=== PATIENT | male | born 1975 | race African-American/Black ===

== ENCOUNTER 2016-08-12 20:07 | Inpatient (IN) | payer SELFPAY ==
--- NOTE | ~2016-08-12 | CN ---
Consultation Report [facility] [address] [place]. [address] NAME: YOGESH DE LA TORRE : 75 STATUS : ADM IN [facility]#: [id number] AGE: 41 ADM/REG DATE : 08/12/16 MR#: [id number] REPORT SERV DATE: 08/13/16 DICTATED BY: KARLIE DE LA ROSA DATE: 08/13/16 REPORT STATUS : Draft TRANSCRIBED BY: MODL DATE: 08/13/16 PULMONARY CONSULTATION DATE OF CONSULTATION: REASON FOR CONSULTATION: Necrotizing pneumonia on the right side. CHIEF COMPLAINT: Not feeling well for one month. HISTORY OF PRESENT ILLNESS: Mr. De La Torre is a 41-year-old gentleman with a past medical history noted below, who presents with one month of symptoms, he has been having right-sided chest pain, worsening shortness of breath, fevers, and chills along with night sweats. He has had some sputum, bloody-tinged secretions, there. He has been on different antibiotics, but does not feel like he is getting better. He presented to the outside hospital, they conducted what sounds to be a thoracentesis and have conducted two CT scans which shows progression of this pneumonia and felt that he needed a more aggressive approach with CT surgery. The patient has been admitted. The patient was on Rocephin and vancomycin, transitioned to Levaquin and vancomycin at the outside hospital. The patient still has a white count of 25,000. Fortunately, the patient is currently not hypoxic. PAST MEDICAL HISTORY: The patient states that he is healthy other than hypertension and does use tobacco. HOME MEDICATIONS: Lisinopril 30 mg once daily. ALLERGIES: NO KNOWN DRUG ALLERGIES. SOCIAL HISTORY: The patient does smoke around one pack per day for many years. No alcohol or illicit drug use. Aunt is at the bedside. FAMILY HISTORY: The patient denies having any family history of infections. REVIEW OF SYSTEMS: All pertinent review of systems reviewed and is otherwise negative. PHYSICAL EXAMINATION: VITAL SIGNS: Temperature maximum 99, heart rate in high 90s, respiratory rate 18 to 22, and oxygen saturation 93% on 2 L nasal cannula. When I saw the patient in the room, he was on room air. Blood pressure currently in the 130s to 140s systolic. GENERAL: The patient is alert and oriented, no acute distress. NECK: No JVD. Neck is supple. PULMONARY: Decreased breath sounds on the right side, left side is clear to auscultation bilaterally. CARDIAC: Regular rate, no murmurs. Consultation Report [address] [address] NAME: YOGESH DE LA TORRE : 75 STATUS : ADM IN PAT#: [id number] AGE: 41 ADM/REG DATE : 08/12/16 MR#: [id number] REPORT SERV DATE: 08/13/16 DICTATED BY: KARILE DE LA ROSA DATE: 08/13/16 REPORT STATUS : Draft TRANSCRIBED BY: MODL DATE: 08/13/16 ABDOMEN: Soft, nontender, nondistended. EXTREMITIES: No lower extremity edema. NEUROLOGIC: No focal neurological deficits. LABORATORY EXAMINATION: The patient has a leukocytosis of 25,000 with neutrophilia and 1% bands. Procalcitonin 0.93. Hepatitis studies and HIV test studies are negative. IMAGING DATA: I have reviewed the CT scans from 08/10/2016 to 08/11/2016, which shows progression of the pneumonia on the right side with worsening complex effusion. ASSESSMENT AND PLAN: Mr. De La Torre is a 41-year-old gentleman with a past medical history noted above, who presents with an infection of unknown etiology. At this moment in time, recommend that we switch the patient's antibiotics to Zosyn and Zyvox. Cultures have been negative at the outside hospital. This was reviewed with Infectious Disease, and they are on their way to see the patient. Also recommend that the patient undergo a VATS procedure, CT surgery is already on the case, and plans are to undergo a surgical operation tomorrow. I am a little concerned of endocarditis. The patient is to get a stat echocardiogram today for further review. Thank you very much for this consultation, please call us with any further questions or concerns. HFQ/MODL Karlie De La Rosa MD / [id number] CC: Justin Newberry M.D. NO PCP
--- NOTE | ~2016-08-12 | CN ---
Consultation Report [facility] [address] [place]. [address] NAME: YOGESH DE LA TORRE : 75 STATUS : ADM IN PAT#: [id number] AGE: 41 ADM/REG DATE : 08/12/16 MR#: [id number] REPORT SERV DATE: 08/13/16 DICTATED BY: HESHAM ABDULLAHI DATE: 08/13/16 REPORT STATUS : Draft TRANSCRIBED BY: MODL DATE: 08/13/16 INFECTIOUS DISEASE CONSULT DATE OF CONSULTATION: 08/13/2016 REASON FOR CONSULTATION: Rapidly progressive pneumonia with complicated effusion. HISTORY OF PRESENT ILLNESS: This is a 41-year-old man who smokes, but otherwise, enjoys good health. He does have hypertension. He says about a month ago he developed some right ear pain and a bit of a cough. He was given some antibiotics and improved, and did not complete the antibiotic course. He then started over the past couple of weeks feeling worse with persistent and worsening cough along with some chills and sweats and then subjective fevers. On 08/07/2016, he developed a little bit of blood in his sputum and some pain in his right side. All these symptoms progressed and he presented to the [facility] Emergency Department and was admitted on 08/08/2016. His white blood cell count was 24.8. Chest x-ray was interpreted as showing a mildly prominent right hilar markings and I have reviewed just a single PA or AP film and indeed it is fairly unimpressive. He did have two sets of blood cultures done on admission and those returned negative. He was treated initially with Levaquin. The patient though had a CT scan of the chest done on 08/10/2016, which showed quite impressive infiltrates on the right side along with pleural effusion. Vancomycin was added to his regimen on 08/11/2016. He had a fever to 102.8 on 08/11/2016. He was seen by Infectious Diseases. A followup CT scan was done on 08/12/2016. A followup CT scan was done on 08/12/2016, which showed continued worsening of his infiltrates with suggestion of a necrotizing component and worsening loculated pleural effusion. He underwent thoracentesis yesterday, which showed 2164 white blood cells and 76% of which were neutrophils, LDH 467, total protein 4, and a pH of 6.87. It was felt that the patient needed CT Surgery evaluation, he was therefore transferred here. I discussed the case with Dr. De La Rosa of Pulmonary earlier today and we switched his antibiotics to Zyvox and Zosyn. CT Surgery has been consulted and plans are made for decortication with VATS procedure tomorrow. The patient's white blood cell count remains elevated at 25.3. He feels a bit better than when he was admitted. The patient denies previous history of pneumonia. He denies injection drug use. He denies any episodes of possible aspiration. PAST MEDICAL HISTORY: Otherwise, unremarkable. The patient did have a tonsillectomy as a child, this is his only surgery. ALLERGIES: NONE. PRESENT MEDICATIONS: In addition to the antibiotics include subcutaneous heparin and Habitrol. SOCIAL HISTORY: The patient is , has three children, lives with his and kids. He does some detailing car work. Otherwise, as noted above. Consultation Report [address] [place]. [address] NAME: YOGESH DE LA TORRE : 75 STATUS : ADM IN [facility]#: [id number] AGE: 41 ADM/REG DATE : 08/12/16 MR#: [id number] REPORT SERV DATE: 08/13/16 DICTATED BY: HESHAM ABDULLAHI DATE: 08/13/16 REPORT STATUS : Draft TRANSCRIBED BY: HASMUKH DATE: 08/13/16 FAMILY HISTORY: Unremarkable. REVIEW OF SYSTEMS: Otherwise, negative except he is constipated. No nausea, vomiting, or diarrhea. PHYSICAL EXAMINATION: VITAL SIGNS: The patient weighs 158 kg. He is presently afebrile. Blood pressure 138/74, pulse 111, and oxygen saturation 96% on 2 liters. GENERAL: He is in no acute distress. He does cough occasionally. HEAD AND NECK: Shows clear oral cavity. Dentition in fair repair. No thrush. Neck is supple. No significant lymphadenopathy. LUNGS: Somewhat diminished breath sounds on the right, otherwise, clear except for a few scattered rhonchi. CARDIAC: Tachycardic. Regular. Normal S1 and S2 without murmur, gallop, or rub. ABDOMEN: Obese, soft, and nontender. EXTREMITIES: Show no rash or edema. He has a peripheral IV without phlebitis. LABORATORY STUDIES: White blood cell count as mentioned, hemoglobin 11, and platelets 259. Creatinine 0.91. Albumin 1.9. Liver function tests normal. Microbiology studies on 08/11/2016 blood cultures x2 sets negative. On 08/12/2016, pleural fluid culture negative to date. Gram stain just have a few white blood cells. On 08/13/2016, urinalysis is negative. Urine legionella and pneumococcal antigens negative. Blood cultures are pending. The patient did have a sputum culture also at [facility], which just grew normal paradise. Other imaging studies include transthoracic echocardiogram at [facility], which was technically difficult study. He had ejection fraction of 55%. No evidence of endocarditis, but again limited study. HIV test and hepatitis panel here are negative. PPD is pending. IMPRESSION: Rapidly progressive pneumonia and complicated parapneumonic effusion in a smoker. The initial 08/08/2016 chest x-ray on admission to [facility] was relatively unimpressive, but this pneumonia and effusion have rapidly progressed and effusion does appear loculated, complicated, and a pH is 6.87 on the tap. I suspect he has a common, although virulent community-acquired pathogen such as pneumococcus or Staphylococcus aureus. Certainly, Klebsiella or Pseudomonas or other gram negatives are possible. His dentition is not great and anaerobes could be involved. Overall, I very much doubt tuberculosis. Also, doubt this is related to injection drug use and right-sided endocarditis, and he denies any recreational drug use. PLAN: 1. Continue the Zyvox and Zosyn. 2. Agree with plans for decortication with VATS procedure tomorrow. SY/HASMUKH Consultation Report [address] [place]. [address] NAME: YOGESH DE LA TORRE : 75 STATUS : ADM IN PAT#: [id number] AGE: 41 ADM/REG DATE : 08/12/16 MR#: [id number] REPORT SERV DATE: 08/13/16 DICTATED BY: HESHAM ABDULLAHI DATE: 08/13/16 REPORT STATUS : Draft TRANSCRIBED BY: HASMUKH DATE: 08/13/16 Hesham Abdullahi M.D. / [id number] CC: Justin Newberry M.D.
--- NOTE | ~2016-08-12 | HP ---
History And Physical [place] [address] [facility] [place]. [address] NAME: YOGESH DE LA TORRE : 75 STATUS : ADM IN PAT#: [id number] AGE: 41 ADM/REG DATE : 08/12/16 MR#: [id number] REPORT SERV DATE: 08/13/16 DICTATED BY: EMIR SIMENTAL DATE: 08/13/16 REPORT STATUS : Draft TRANSCRIBED BY: MODL DATE: 08/13/16 DATE OF ADMISSION: 08/12/2016 Transferred from [facility] under the care of Dr. Pablo Ware requesting higher level care with Infectious Disease consultation and CT surgery has been already discussed by Dr. Ware with CT surgery team. CHIEF COMPLAINT/REASON FOR TRANSPORTATION: Pneumonia with necrotizing component noted on CT with IV contrast done at [facility] [place]. Original imaging not available currently. HISTORY OF PRESENT ILLNESS: The patient is a 41-year-old male with past medical history of tobacco use, hypertension, who has been complaining about shortness of breath for the last one month. He has also had bilateral ear pain, which has since resolved since his admission at [facility] [place] with antibiotics, but has had progressive shortness of breath with dyspnea on exertion, cough, chills, night sweats, and weight loss that has now progressed to bloody sputum and right-sided burning pain. The patient was trialed on multiple different variations of antibiotics, had leukocytosis, tachypnea, tachycardia, sepsis criteria. Despite treatment, the patient was still having continued progressive worsening. CT with biopsy was performed at outside facility and Pulmonary consult was performed and the patient was recommended transfer for possible CV surgery evaluation and ID evaluation. The patient reports that he has had all these fevers, chills, ear ache, bloody sputum, multiple coughing episodes, mild dehydration, weight loss. He does report also having been in snf in the past, but denies any additional TB risk factors. No recent exposures to anyone else had. No flu or cough symptoms that he can recall. The patient is able to maintain oxygenation above 90-95% by nasal cannula. Pain is pleuritic somewhat deep without radiating symptoms. No worsening symptoms, but no relieving symptoms noted. Symptoms still currently present, but only mildly improved. REVIEW OF SYSTEMS: CONSTITUTIONAL: For additional review of systems noted for fever, chills, and night sweats. The patient reported having prior episode approximately in the summer of last year when emesis was happening. EYES: No eye pain or double vision. ENT: Did have ear pain bilaterally and nasal congestion, which is both improved and sore throat. RESPIRATORY: Positive shortness of breath, productive sputum, and blood tinged sputum. No wheezing. CV: Positive for chest pain, but no palpitations. GI: No nausea, vomiting, or diarrhea. : No dysuria or hematuria. HEME: No bruising or bleeding history. MUSCULOSKELETAL: No myalgias, arthralgias above baseline. IMMUNOLOGIC: No history of recurrent infections. ENDOCRINE: No high blood sugars or polyuria or polydipsia. PSYCHIATRIC: No anxiety. History of hallucinations reported. History And Physical [address] [address] NAME: YOGESH DE LA TORRE : 75 STATUS : ADM IN [facility]#: [id number] AGE: 41 ADM/REG DATE : 08/12/16 MR#: [id number] REPORT SERV DATE: 08/13/16 DICTATED BY: EMIR SIMENTAL DATE: 08/13/16 REPORT STATUS : Draft TRANSCRIBED BY: HASMUKH DATE: 08/13/16 PAST MEDICAL HISTORY: Noted for tobacco use and hypertension. HOME MEDICATIONS: Lisinopril. ALLERGIES: NO KNOWN DRUG ALLERGIES. SOCIAL HISTORY: Does have 30 cigarettes a day, smoker for many years. No alcohol or illicits. FAMILY HISTORY: No reported lung issues or anesthesia issues. PAST SURGICAL HISTORY: Tonsillectomy as a child. PHYSICAL EXAMINATION: VITAL SIGNS: The patient's blood pressure 129/71, temperature 97.8, pulse 96, respirations 18, O2 sats 2 L 94%. GENERAL: Obese, mild discomfort, but well developed, well nourished. EYES: No scleral icterus. EOMI. ENT: Nares patent. Tongue midline. Moist mucous membranes. NECK: No JVD. Large neck. CHEST: Equal chest expansion. No increased AP diameter. CARDIAC: Rhonchi in right lung field with positive blood-tinged sputum, multiple episodes during interview. Heart rate mildly tachycardic. No pedal edema. GI: Soft, nontender, nondistended. Bowel sounds positive. LYMPHATIC: Does have mild cervical lymphadenopathy. MUSCULOSKELETAL: Moves all extremities x4. NEUROLOGIC: Alert and oriented. Sensation grossly intact. Symmetrical strength in upper and lower extremities. : Deferred. HEME: No bleeding or bruising. SKIN: Warm and dry. PSYCHIATRIC: Appropriate mood and affect, pleasant. Most recent antibiotics from outside facility; Levaquin and vancomycin. CT from outside facility, dense consolidation airspace throughout the right hemithorax with findings suggestive of necrotizing pneumonia of the right lower lobe, overall worsened, significant interval increase and likely associated loculated, now moderate to large right-sided pleural effusion, new multifocal ground-glass opacity in the left hilar region and left upper lobe, most likely infectious inflammatory nature. TTE, EF of 55%. Pericardium without pericardial effusion. Unable to comment about vegetation. Gram sputum noted for gram- negative rods and gram-positive cocci. Culture pending per reports. Initial WBC count 23.3, hemoglobin 10.7, noted to be duff virus positive. ASSESSMENT AND PLAN: 1. Necrotizing pneumonia. 2. Hypertension. 3. Weight loss. History And Physical [address] [address] NAME: YOGESH DE LA TORRE : 75 STATUS : ADM IN [facility]#: [id number] AGE: 41 ADM/REG DATE : 08/12/16 MR#: [id number] REPORT SERV DATE: 08/13/16 DICTATED BY: EMIR SIMENTAL DATE: 08/13/16 REPORT STATUS : Draft TRANSCRIBED BY: HASMUKH DATE: 08/13/16 4. Duff virus positive. 5. Bilateral otitis. 6. Tobacco use. 7. Morbid obesity. 8. Sepsis present on arrival. 9. Hypomagnesemia. PLAN: 1. For necrotizing pneumonia, right lobe noted with left lobe perihilar component on recent CT, although official imaging still requested. Report noted on chart has had CT thoracentesis done at outside facility, results still currently pending. CT surgery evaluation and ID evaluation pending. We will need to check HIV, hepatitis panel. The patient does have history of incarceration history plus weight loss, hematemesis, night sweats, and chills. We will obtain TB skin test and place on TB precautions. 2. Hypertension. Hold lisinopril in acute setting. 3. Weight loss. Again, rule out TB, treat underlying pneumonia as he appears to be fighting this for over a month. 4. Duff virus positive per ID. 5. Bilateral otitis resolved with treatment. 6. Tobacco use, nicotine patch. Counseled. 7. Morbid obesity needs weight loss. 8. Sepsis present on arrival. He has been treated at [facility] [place] with leukocytosis, tachycardia, tachypnea, and fevers. IV fluids, IV antibiotics. Cultures pending. ID and surgical evaluation pending. 9. Hypomagnesemia, 1.6 at outside facility. Recheck in a.m. Replace as needed per protocol. Guarded prognosis discussed with the patient. All questions answered with the patient. DISPOSITION: Pending surgical ID evaluation and clinical improvement. DDN/MODL Emir Simental MD / [id number] CC: Justin Newberry M.D.
--- NOTE | ~2016-08-12 | OP ---
Record Of Operation [place] [address] [facility] [place]. [address] NAME: YOGESH DE LA TORRE : 75 STATUS : ADM IN PAT#: [id number] AGE: 41 ADM/REG DATE : 08/12/16 MR#: [id number] REPORT SERV DATE: 08/14/16 DICTATED BY: PATRICK JHAVERI DATE: 08/14/16 REPORT STATUS : Draft TRANSCRIBED BY: MODL DATE: 08/14/16 DATE OF PROCEDURE: 08/14/2016 ATTENDING PHYSICIAN: Patrick Jhaveri MD STATION INSPECTOR: Jhonatan Will. PREOPERATIVE DIAGNOSES: 1. Right empyema. 2. Right lung abscess. 3. Right pleural effusion. 4. Right lung pneumonia. POSTOPERATIVE DIAGNOSES: 1. Right empyema. 2. Right lung abscess. 3. Right pleural effusion. 4. Right lung pneumonia. OPERATION/PROCEDURE PERFORMED: 1. Right VATS. 2. Right decortication. 3. Drainage of right effusion. 4. Drainage of right lower lobe lung abscess. COMPLICATIONS: None. ESTIMATED BLOOD LOSS: 50 mL. TUBES AND DRAINS: A 32-straight chest tubes x2. SPECIMEN REMOVED: Pleural peel, pleural fluid, and abscess contents. POSTOPERATIVE CONDITION: Stable to CVICU. INDICATIONS FOR PROCEDURE: Mr. De La Torre is a 41-year-old gentleman, who presented to an outside facility with loculated right pleural effusion consistent with a parapneumonic effusion consistent with empyema, and signs of potential lung abscess on CT scan. The patient was transferred to [facility] for definitive care. Risks, benefits, and alternatives were discussed with the patient including but not limited to, bleeding, infection, stroke, , heart attack, need for future operations. All questions were answered. DETAILS OF PROCEDURE: The patient was brought to the operating room, placed supine on the operating room table. After satisfactory induction of general endotracheal anesthesia, he was prepped and draped in usual sterile fashion after rolling him in the left lateral Record Of Operation [place] [address] [facility] [place]. [address] NAME: YOGESH DE LA TORRE : 75 STATUS : ADM IN PAT#: [id number] AGE: 41 ADM/REG DATE : 08/12/16 MR#: [id number] REPORT SERV DATE: 08/14/16 DICTATED BY: PATRICK JHAVERI DATE: 08/14/16 REPORT STATUS : Draft TRANSCRIBED BY: HASMUKH DATE: 08/14/16 decubitus position. Arm was placed on an overhead arm sling, lower leg was bent, upper leg was straight, all pressure points were padded. He was prepped and draped in usual sterile fashion. A small incision was made in the seventh intercostal space in the mid axillary line. The skin and subcutaneous tissues were divided. The latissimus was divided. Serratus was divided. The chest wall was encountered. The chest was entered above the rib. Pleura was incised, there was a free space, suction was placed, and clear straw colored fluid was removed. The wound protector was placed and a camera was introduced. There was a large pleural peel which was decorticated along the posterolateral aspect of the lower lobe. The peel was encountered. The lung was pushed down from the chest wall and a large amount of purulent material was obtained, this was drained. Abscess cavity was evacuated and we could see an abscess in the lung that had been unroofed. The chest was copiously irrigated. The lung was totally decorticated from [id number], medial and lateral, superior- to-inferior, following the completion of the decortication, two chest tubes were placed, one posteriorly along the tract of the abscess, and one anteriorly to the apex, exteriorized, and hooked to chest bottle. The lung was then inflated. The lung appeared to fill the space. The incision was closed with 0 Vicryl, 2-0 Vicryl, and 4-0 Monocryl. Dermabond was applied to the skin. Dry sterile dressings were applied to the chest Tube. He was log rolled supine and taken to the PACU in stable condition. [facility]/HASMUKH Patrick Jhaveri MD / [id number] CC: Justin Newberry M.D.
--- NOTE | ~2016-08-12 | IDS ---
Interim Discharge Summary [facility] [address] [place]. [address] NAME: YOGESH DE LA TORRE : 75 STATUS : ADM IN PAT#: [id number] AGE: 41 ADM/REG DATE : 08/12/16 MR#: [id number] REPORT SERV DATE: 08/17/16 DICTATED BY: JUSTIN NEWBERRY DATE: 08/16/16 REPORT STATUS : Draft TRANSCRIBED BY: MODL DATE: 08/16/16 ADMISSION DATE: 08/12/2016 DISCHARGE DATE: INTERIM DIAGNOSES: 1. Right lung necrotizing pneumonia with significant parapneumonic effusion and empyema. 2. Hypertension. 3. Obesity. 4. Tobacco abuse. CONSULTANTS DURING THIS HOSPITALIZATION: 1. Dr. King of Cardiothoracic Surgery. 2. Dr. De La Rosa of Pulmonology. 3. Dr. Abdullahi of Infectious Disease. INVASIVE PROCEDURES DONE DURING THIS HOSPITALIZATION: VATS with decortication, done by Dr. King on 08/14/2016. BRIEF HISTORY OF PRESENT ILLNESS: The patient is a 41-year-old white male, transferred from [facility] where he had presented with rapidly progressing necrotizing pneumonia and getting worse. For a detailed history and physical exam, please see note dictated by Dr. Ivan Mcneal on 08/12/2016. HOSPITAL COURSE: After being admitted to the hospital, this patient underwent full lung evaluation. We reviewed films from [facility] and immediately involved CT Surgery, Infectious Disease, and Pulmonology for management of his advanced and significant rapid progression of pneumonia. His HIV evaluation is still pending. TB, Dr. Abdullahi did not think that this patient had TB, so his isolation has been discontinued. We have switched his antibiotic therapy to Zosyn and Zyvox thinking to provide better coverage for this rapidly progressing infection. This patient already has underwent surgical procedure and now currently has a right-sided double lumen chest tube that is being followed by CT Surgery. Dr. Abdullahi continues to manage his antibiotics and Dr. De La Rosa continues to manage his pulmonary status. He has had some persistent tachycardia for which I have started him on 12.5 mg of Lopressor and continue to monitor that. DISPOSITION: Will be pending above. AIDAN/HASMUKH Justin Newberry M.D. / [id number] Interim Discharge Summary [address] [facility] [place] [id number] NAME: YOGESH DE LA TORRE : 75 STATUS : ADM IN PAT#: [id number] AGE: 41 ADM/REG DATE : 08/12/16 MR#: [id number] REPORT SERV DATE: 08/17/16 DICTATED BY: JUSTIN NEWBERRY DATE: 08/16/16 REPORT STATUS : Draft TRANSCRIBED BY: HASMUKH DATE: 08/16/16 CC: Justin Newberry M.D.
--- NOTE | ~2016-08-12 | CN ---
Consultation Report [facility] [address] [place]. [address] NAME: YOGESH DE LA TORRE : 75 STATUS : ADM IN PAT#: [id number] AGE: 41 ADM/REG DATE : 08/12/16 MR#: [id number] REPORT SERV DATE: 08/13/16 DICTATED BY: PATRICK JHAVERI DATE: 08/13/16 REPORT STATUS : Draft TRANSCRIBED BY: MODL DATE: 08/13/16 CONSULT REPORT DATE OF CONSULTATION: 08/13/2016 REASON FOR CONSULTATION: Right-sided pleural effusion. HISTORY OF PRESENT ILLNESS: This is a 41-year-old male, who has a longstanding history of heavy tobacco abuse and high blood pressure. He has been experiencing ongoing shortness of breath for the last month and was treated at [facility] for pneumonia. CT scan done there showed a large right-sided pleural effusion that appeared to be loculated. The patient was also experiencing dyspnea on exertion, cough, chills, night sweats, and what he reported as weight loss and occasional bloody sputum. He had leukocytosis upon admission. Currently blood cultures are pending. He is able to maintain O2 saturations in the mid to high 90s by a nasal cannula. He is still experiencing some right-sided pleuritic pain but otherwise has a negative review of systems. CT surgery was consulted for evaluation of this right-sided pleural effusion and possible right-sided video-assisted thoracoscopy. PAST MEDICAL HISTORY: Significant for high blood pressure and heavy tobacco abuse. SOCIAL HISTORY: He does smoke around 30 cigarettes a day for several years. He denies any alcohol or use of illicit drugs. FAMILY HISTORY: Reviewed and noncontributory. PAST SURGICAL HISTORY: Prior tonsillectomy as a child. ALLERGIES: NO KNOWN DRUG ALLERGIES. MEDICATIONS: The only medication that he is on is lisinopril 30 mg p.o. daily. REVIEW OF SYSTEMS: A 12-point review of systems was obtained and is negative other than the HPI. PHYSICAL EXAMINATION: VITAL SIGNS: From today temperature 98 degrees, heart rate 97, blood pressure 134/83, respiratory rate 12, and O2 saturation 94% on 2 L nasal cannula. GENERAL: Obese male, in no acute distress. HEENT: Head normocephalic and atraumatic. Sclerae clear. NECK: Supple. NEUROLOGIC: Alert and oriented x3. Pupils exhibit PERRLA. CARDIAC: S1 and S2 with no murmurs, rubs, or gallops. CHEST: Coarse breath sounds on the right. Diminished bases which is more evident on the Consultation Report [place] [address] [place]. [address] NAME: YOGESH DE LA TORRE : 75 STATUS : ADM IN PAT#: [id number] AGE: 41 ADM/REG DATE : 08/12/16 MR#: [id number] REPORT SERV DATE: 08/13/16 DICTATED BY: PATRICK JHAVERI DATE: 08/13/16 REPORT STATUS : Draft TRANSCRIBED BY: MODL DATE: 08/13/16 right side. ABDOMEN: Soft, obese, and nontender with active bowel sounds. EXTREMITIES: Free of cyanosis or clubbing. No significant edema. LAB DATA AND IMAGING DATA: White blood cell count 25.3, hemoglobin 11, hematocrit 33.2, and platelets 259. Sodium 136, potassium 4.0, chloride 101, bicarbonate 26, BUN 10, and creatinine 0.9. CT scan done at [facility] shows what appears to be a large right-sided loculated pleural effusion. He apparently had an echocardiogram done there which showed no obvious pericardial effusion but did not comment on his valves or any type of vegetation. Repeat echocardiogram which was ordered for today is currently pending. ASSESSMENT AND PLAN: This is a 41-year-old, male who has been experiencing shortness of breath for the past month, admitted to [facility] with pneumonia, leukocytosis, and shortness of breath. A CT scan done there showed a large right-sided loculated pleural effusion. He also had an echocardiogram done which showed no acute abnormality but it did not mention anything about his valves as to whether or not there was any vegetation. He apparently had positive blood cultures there. Repeat blood cultures here are pending. He is on antibiotics under the care of ID and hospitalist. Unfortunately, the patient has already eaten, so he cannot be taken to surgery today. We will keep him n.p.o. tonight and proceed with a right-sided video-assisted thoracoscopy with decortication and possible thoracotomy tomorrow afternoon per Dr. Patrick Jhaveri. I would like to thank you for this consultation. We will continue to follow with you. DICTATED BY: EVE Pruett/HASMUKH Patrick Jhaveri MD / [id number] CC: Justin Newberry M.D.
--- NOTE | ~2016-08-12 | DS ---
Discharge Summary [place] [address] [facility] [place]. [address] NAME: YOGESH DE LA TORRE : 75 STATUS : DIS IN PAT#: [id number] AGE: 41 ADM/REG DATE : 08/12/16 MR#: [id number] REPORT SERV DATE: 08/24/16 DICTATED BY: BETO WALSH DATE: 08/24/16 REPORT STATUS : Draft TRANSCRIBED BY: MODL DATE: 08/24/16 ADMISSION DATE: 08/12/2016 DISCHARGE DATE: 08/24/2016 ADDENDUM: DIAGNOSES: 1. Right lung necrotizing pneumonia with empyema, status post thoracotomy x2. 2. Hypertension. 3. Leukocytoses. 4. Obesity. 5. History of tobacco abuse. 6. Postoperative anemia. DISCHARGE MEDICATIONS: Ascorbic acid 1000 mg p.o. daily, Rocephin 2 g IV daily to stop on 09/06/[address] Brain Abdullahi, folic acid 1 mg p.o. daily, multivitamin p.o. daily, metoprolol tartrate 12.5 mg p.o. b.i.d., albuterol MDI two puffs inhaled q.4 hours. CONSULTANTS: 1. Cardiothoracic Surgery, Dr. King and Dr. randolph Cortez. 2. Infectious Disease, Dr. Brain Abdullahi. 3. Hospitalists, Dr. Ivan Mcneal and Dr. Gisele Stuart, and Dr. Newberry. FOLLOWUP: The patient is to follow up with Dr. Brain Abdullahi on 09/07/2016. Also, the patient's PICC line is to be discontinued after completion of antibiotics. Also, the patient is to have weekly CBC and CMP q. week by Dr. Brain Abdullahi to be followed. Also, the patient is to follow up with the primary care physician. HOSPITAL COURSE: Please refer to discharge summary per Dr. Gisele Stuart, interim summary from Dr. Newberry, and H and P from Dr. Ivan Mcneal for further details. The patient is clinically stable for discharge. Please refer to Dr. Gisele Stuart's discharge summary for details. [facility]/MODL Beto Walsh M.D. / [id number] CC: Beto Walsh M.D.
--- NOTE | ~2016-08-12 | DS ---
Discharge Summary [place] [id number] [facility] [place]. [address] NAME: YOGESH DE LA TORRE : 75 STATUS : ADM IN [facility]#: [id number] AGE: 41 ADM/REG DATE : 08/12/16 MR#: [id number] REPORT SERV DATE: 08/23/16 DICTATED BY: GISELE GARCIA DATE: 08/22/16 REPORT STATUS : Draft TRANSCRIBED BY: MODL DATE: 08/22/16 ADMISSION DATE: 08/12/2016 DISCHARGE DATE: INTERIM DISCHARGE SUMMARY DIAGNOSES OF DISCHARGE: 1. Right lung necrotizing pneumonia with significant pneumonic effusion and empyema status post video-assisted thoracoscopic surgery with decortication done by Dr. King on 08/14/2016, and also he has had a redo thoracotomy with decortication that has been performed due to the persistent of the loculated pleural empyema by Dr. Kishore Cortez on 08/19/2016. 2. Surgical cultures have grown Strep anginosus that is sensitive to Unasyn. Currently, the patient is on Unasyn, improving. 3. Hypertension. 4. Obesity. 5. Tobacco abuse. 6. Postoperative anemia. 7. Folate deficiency. 8. Leukocytosis, improving. CONSULTANTS ON THE CASE: 1. Dr. King of CT surgery and Dr. Cortez, CT surgery currently. 2. Dr. [place] Abdullahi, Infectious Disease. PROCEDURE DONE DURING THIS HOSPITALIZATION: As I said, VATS with decortication by Dr. King on 08/14/2016, and the patient also due to the persistent of the loculated empyema, had redo thoracoscopy, complete decortication with therapeutic bronchoscopy performed by Dr. Kishore Cortez on 08/19/2016. HOSPITAL COURSE: Shortly, this is a 41-year-old gentleman who has been transferred for [facility], presenting with a rapidly progressive necrotizing pneumonia as well as empyema. For further details, please see dictation of Dr. Ivan Mcneal from 08/12/2016 as well as the interim discharge summary of Dr. Justin Newberry from 08/17/2016. It is also important to note that during this week, the patient had persistent right pleural effusion after initial decortication, and due to the continuation of the persistent white blood cell count and fluid in the right chest, the patient has been seen during this week by Dr. Cortez from CT Surgery for further recommendation. The patient has been seen during this week by Dr. Shannon from Pulmonary Service. He did have a repeat CT scan of the chest without contrast on 08/16/2016, which show that despite VATS and right-sided placement of the chest tube, and somewhat reduced loculated right pleural effusion, he still had persistent loculated right pleural collection with some air-fluid levels on the posteromedial right hemothorax. As a result, the patient has been seen by Dr. Kishore Cortez for a second opinion for persistent right pleural effusion, and after evaluation, he considered that the patient needed a redo decortication with complete decortication at this time, which has been performed by Dr. Cortez on 08/18/2016. It is again important to Discharge Summary [address] [address] NAME: YOGESH DE LA TORRE : 75 STATUS : ADM IN [facility]#: [id number] AGE: 41 ADM/REG DATE : 08/12/16 MR#: [id number] REPORT SERV DATE: 08/23/16 DICTATED BY: GISELE GARCIA DATE: 08/22/16 REPORT STATUS : Draft TRANSCRIBED BY: MODL DATE: 08/22/16 note that the patient's initial culture did show Strep, and he is followed by Infectious Disease who are managing his antibiotics. After the second redo thoracoscopy with complete decortication, the patient improved significantly. His white count is trending down slowly. His chest x-ray has improved significantly. His chest tube has been discontinued on 08/21/2016, and currently, the patient would not need further surgical intervention per CT Surgery. Hopefully, he would be able to be discharged in the next 24 to 48 hours with antibiotic recommendation per Infectious Disease Dr. Abdullahi. CURRENT MEDICATIONS AT INTERIM DISCHARGE SUMMARY: Include vitamin C, Dulcolax, Colace, Lovenox, Lopressor, multivitamin, Habitrol, Mycostatin oral suspension, Protonix, MiraLax, Orazinc, and Unasyn. My partners will start to see Mr. Yogesh De La Torre from 08/23/2016. CF/MODL Gisele Garcia M.D. / [id number] CC: Gisele Garcia M.D.
--- NOTE | ~2016-08-12 | CN ---
Consultation Report [facility] [address] [place]. [address] NAME: YOGESH DE LA TORRE : 75 STATUS : ADM IN PAT#: [id number] AGE: 41 ADM/REG DATE : 08/12/16 MR#: [id number] REPORT SERV DATE: 08/18/16 DICTATED BY: MILTON CORTEZ JR. DATE: 08/18/16 REPORT STATUS : Draft TRANSCRIBED BY: MODReal DATE: 08/18/16 CONSULTATION NOTE DATE OF CONSULTATION: 08/18/2016 REASON FOR CONSULTATION: Second opinion for persistent right pleural effusion, status post decortication. BRIEF HISTORY: This is a 41-year-old male with a longstanding history of hypertension and tobacco abuse. He presented to [facility] last week with pneumonia and dyspnea with exertion. A CT scan performed at [facility] showed a large right- sided pleural effusion that appeared to be an empyema. He did have associated cough, chills, night sweats, and loss of appetite. He was also noted to have significant elevation in his white blood count and fever consistent with sepsis. It is felt that he had a necrotizing pneumonia. He was transferred to [facility] and underwent an urgent right thoracoscopy with decortication by Dr. Patrick King. Postoperatively, he continued to have increased white blood count with persistent fluid in the right chest. There were significant calcified lymph nodes in the chest consistent with possible old histoplasmosis infection. We are asked to see him for further recommendations. PAST MEDICAL HISTORY: Significant for tobacco abuse and hypertension as well as obesity. SOCIAL HISTORY: Significant for one to one and half pack per day for 21-year tobacco history. He denies any illicit drugs or alcohol use. He works detailing cars. He is and has three children. FAMILY HISTORY: Not significant for any early coronary artery disease or lung cancers. It is otherwise noncontributory. HOME MEDICATIONS: Include lisinopril 30 mg p.o. daily. ALLERGIES: NONE. PAST SURGICAL HISTORY: Significant for tonsillectomy as a child. REVIEW OF SYSTEMS: Significant for right pleuritic pain, shortness of breath, dyspnea with exertion. A complete 12-point review of systems done, all other systems negative except the above- mentioned pertinent positives in the history of present illness. PHYSICAL EXAMINATION: GENERAL: A 41-year-old, obese black male, alert, in no acute distress. CONSTITUTIONAL: With vital signs 139/78, afebrile, heart rate 103, normal sinus rhythm. Consultation Report [place] [id number] [place]. [address] NAME: YOGESH DE LA TORRE : 75 STATUS : ADM IN PAT#: [id number] AGE: 41 ADM/REG DATE : 08/12/16 MR#: [id number] REPORT SERV DATE: 08/18/16 DICTATED BY: MILTON CORTEZ JR. DATE: 08/18/16 REPORT STATUS : Draft TRANSCRIBED BY: HASMUKH DATE: 08/18/16 Oxygen saturation 94%-96% on 2 liters nasal cannula. Weight 157 kg, height 5 feet 11 inches. HEAD, EARS, EYES, NOSE, AND THROAT: Normocephalic, atraumatic. Pupils are equal, round and reactive to light. Ears, nose and throat without drainage, lesions, or exudates noted. NECK: Supple. No lymphadenopathy, JVD, or bruits. Trachea midline. No obvious goiter. CHEST: Symmetrical bilateral movement. No chest wall deformities noted. There is an indwelling right chest tube. CARDIOVASCULAR: Regular rate and rhythm. S1, S2. No gallop, murmur, or rub. RESPIRATORY: Lungs, diminished breath sounds in the right chest with scattered rhonchi. Left chest is clear. There is no use of accessory muscles noted. GASTROINTESTINAL: Abdomen is soft, nontender, nondistended with positive bowel sounds in all four quadrants. No hepatosplenomegaly noted. MUSCULOSKELETAL: Without any obvious long bone abnormalities. Normal range of motion in all four extremities. There is no kyphosis or scoliosis noted. NEUROLOGICAL: All 12 cranial nerves intact. No focal neurologic deficits noted. He is alert and oriented x3. : The patient voids without difficulty. Otherwise, deferred. EXTREMITIES: Without clubbing, cyanosis, or edema. 3+ pulses bilaterally. PSYCH: Normal mood, affect, and pleasant. Answers all questions appropriately. SKIN: Warm and dry, with no breakdown or lesions noted. Normal turgor. HEMATOLOGIC/LYMPHATIC: Without any obvious supraclavicular or axillary lymphadenopathy noted. There is no petechiae or ecchymosis noted. DATA: Esophagram performed today showing no evidence of esophageal perforation or diverticulum. CT of the chest dated 08/16/2016 showing calcified subcarinal lymphadenopathy. There are granulomas in the spleen as well as in the left chest. There is significant amount of loculated right pleural effusion with an indwelling chest tube in place. There is a small loculated pneumothorax in the apex as well. There is patchy consolidation and ground-glass opacity throughout the right lower lobe and right middle lobe. There is also slight improvement in the ground-glass infiltrate in the left upper lobe and superior segment of the left lower lobe. LABORATORY DATA: Dated 08/18/2016, sodium 138, potassium 3.5, BUN 6, creatinine 1.01, glucose 107, magnesium 2.5. White blood count 28.1, hemoglobin 9.8, hematocrit 30, platelet 300. PROBLEM LIST: 1. Persistent right loculated pleural effusion. 2. Calcified subcarinal lymphadenopathy. 3. History of tobacco abuse. 4. Obesity. 5. Hypertension. 6. Right-sided pneumonia. Consultation Report [address] [address] NAME: YOGESH DE LA TORRE : 75 STATUS : ADM IN [facility]#: [id number] AGE: 41 ADM/REG DATE : 08/12/16 MR#: [id number] REPORT SERV DATE: 08/18/16 DICTATED BY: MILTON CORTEZ JR. DATE: 08/18/16 REPORT STATUS : Draft TRANSCRIBED BY: HASMUKH DATE: 08/18/16 IMPRESSION AND PLAN: A 41-year-old black male with persistent loculated pleural effusion, status post decortication. He has significant calcified subcarinal lymphadenopathy and granulomas in the spleen consistent with previous histoplasmosis infection. There still appears to be loculated areas of hydropneumothorax in the right chest and ongoing consolidation in the right middle and lower lobe, consistent with unresolved pneumonia. He continues to have elevation in his white blood count. The original cultures did show a Strep viridans species. He has been followed by Infectious Disease Service and they are managing his antibiotics. I think he needs to return to the operating room for redo decortication. He may require a small thoracotomy to completely take down all the loculated adhesions and peel around the lung. I discussed the risks, benefits, expected outcomes of the procedure with the patient and he is willing to proceed. We will continue to leave him n.p.o. and plan for surgery later this afternoon. DICTATED BY: EVE Mejia/HASMUKH Milton Cortez Jr., M.D. / [id number] CC: Gisele Stuart M.D.
--- NOTE | ~2016-08-12 | OP ---
Record Of Operation [facility] [address] [place]. [address] NAME: YOGESH DE LA TORRE : 75 STATUS : ADM IN [facility]#: [id number] AGE: 41 ADM/REG DATE : 08/12/16 MR#: [id number] REPORT SERV DATE: 08/19/16 DICTATED BY: MILTON CORTEZ JR. DATE: 08/18/16 REPORT STATUS : Draft TRANSCRIBED BY: MODL DATE: 08/18/16 DATE OF PROCEDURE: 08/18/2016 PREOPERATIVE DIAGNOSIS: Right lower lobe lung abscess with empyema, status post recent right thoracoscopy with decortication, increased body mass index, COPD, persistent elevated white cell count. POSTOPERATIVE DIAGNOSIS: Persistent loculated empyema. NAME OF OPERATION: Redo thoracoscopy, complete decortication, therapeutic bronchoscopy. SURGEON: Milton Cortez M.D. RESIDENT SURGEON: Dr. Vitaly Santos. TRANSPLANT IMMUNOLOGIST: Jhonatan Will. ANESTHESIA: General tracheal. FINDINGS: The patient was noted to have no airway injury on bronchoscopy. Mucous secretions were evacuated. There was severe edema in the right middle lobe and right lower lobe mucosa. Specifically, there was no broncholith seen. All airways were patent. Upon repeat thoracoscopy, there was continue loculated areas of pus that was evacuated posteriorly. There was also another loculated area in the apex with more gelatinous material. There was severe inflammation within the chest cavity. We were able to get the lung fully mobilized. The previous lung abscess was seen and appeared to be well drained. All the posterior fluid collections and anterior collections were drained and sent for cultures. Chest was thoroughly irrigated with multiple liters of normal saline solution. We were able to get the lung re-expanded after decortication. DETAILS OF OPERATION: After adequate general anesthesia, the patient was intubated. Bronchoscopy was performed noting the above findings. Mucous secretions were evacuated. There was no injury or broncholith seen. Double-lumen endotracheal tube was then placed. The patient was then positioned in the left lateral decubitus position. The right chest was prepped and draped in routine sterile fashion. A small incision was made overlying the lower intercostal space, just above his previous incision. Dissection was carried down into the pleural space. His obesity made it very difficult. We were able get in the chest cavity and found a loculated areas of purulent material posteriorly. This was debrided, evacuated, and sent for cultures. Repeat decortication was performed. The lung was completely immobilized. We were able get the fissures . All three lobes and the lungs were able to come up. There was significant amount of inflammation along the pleura. There were multiple areas of trapped fluid collections. After extensive debridement and irrigation of chest cavity, we placed two 32-Telugu chest tubes. The lung was reinflated. The single trocar sites were closed with running Vicryl sutures. The skin was closed with running monofilament suture. A Dermabond dressing was applied. The procedure was terminated at this point. The patient tolerated the procedure well and taken back to Record Of Operation [address] [address] NAME: YOGESH DE LA TORRE : 75 STATUS : ADM IN [facility]#: [id number] AGE: 41 ADM/REG DATE : 08/12/16 MR#: [id number] REPORT SERV DATE: 08/19/16 DICTATED BY: MILTON CORTEZ JR. DATE: 08/18/16 REPORT STATUS : Draft TRANSCRIBED BY: HASMUKH DATE: 08/18/16 recovery room in stable condition. ZOE/HASMUKH Milton Cortez Jr., M.D. / [id number] CC: Gisele Stuart M.D.
[2016-08-12] MEDS ORDERED: ZESTRIL30 MG PO (21:00)
[2016-08-13 04:41] LABS: ASCORBIC ACID (UR NOT ORDER) NEG (NEG); BILIRUBIN, URINE NEGATIVE (NEG); KETONE, URINE TRACE MG/DL (NEG); LEUKOCYTE ESTERASE(NOT OR NEG (NEG); WBC (NOT ORDERED) (RFLEX) 4 (0-5)
[2016-08-13 05:06] LABS: HEMATOCRIT 33.2 % (40.0-51.0); MEAN CORPUS HGB CONC 33.1 g/dL (32.0-36.0); MEAN CORPUSCULAR HEMOGLOB 22.3 pg (26.0-34.0); MEAN CORPUSCULAR VOLUME 67.3 fL (80-100); PLATELET COUNT 259 10/3/uL (150-400); RBC DISTRIBUTION WIDTH 14.6 % (12.0-16.0); RED CELL COUNT 4.93 10/6/uL (4.7-6.1)
[2016-08-13 05:07] LABS: INTERNATIONAL NORMAL RATI 1.2 UNITS (-); PROTIME (NOT ORD) 15.5 SEC (12.0-14.5)
[2016-08-13 05:13] LABS: A/G RATIO 0.4 (0.7-1.9); ALBUMIN 1.9 G/DL (3.5-5.0); ALKALINE PHOSPHATASE 62 U/L (45-117); BUN (BLOOD UREA NITROGEN) 10 MG/DL (6-23); CALCIUM, SERUM 8.6 MG/DL (8.5-10.4); CHLORIDE, SERUM 101 MMOL/L (96-112); CO2 (CARBON DIOXIDE) 26 MMOL/L (24-34); CREATININE 0.91 MG/DL (0.70-1.30); GFR AFRICAN AMERICAN 121 ML/MIN (>=60); GFR NON AFRICAN AMERICAN 104 ML/MIN (>=60); GLOBULIN 4.9 G/DL (2.5-4.1); GLUCOSE, SERUM 131 MG/DL (60-99); SGOT(AST) 25 U/L (5-40); SGPT(ALT) 30 U/L (5-65); SODIUM, SERUM 136 MMOL/L (135-148); TOTAL BILIRUBIN 0.9 MG/DL (0-1.2); TOTAL PROTEIN 6.8 G/DL (6.0-8.5)
[2016-08-13 05:40] LABS: WHITE BLOOD CELLS 25.3 10/3/uL (4.5-10.5)
[2016-08-13 05:41] LABS: MANUAL DIFF YES %
[2016-08-13 05:58] LABS: PROCALCITONIN 0.93 ng/mL (<0.5)
[2016-08-13 06:08] LABS: BAND NEUTROPHILS 1 %; LYMPHOCYTES 1 %; LYMPHOCYTES ABSOLUTE (CALC) 0.25 10/3/uL (0.67-4.30); NEUTROPHILS ABSOLUTE (CALC) 25.05 10/3/uL (2.02-8.40); SEGMENTED NEUTROPHIL (0) 98 %; TOTAL NUCLEATED CELLS 100
[2016-08-13 06:09] LABS: HYPOCHROMIA 1+ (3-10/OIF) (0-2/OIF)
[2016-08-13 06:12] LABS: TARGET CELLS FEW (3-10/OIF) (0-1/OIF)
[2016-08-13 06:13] LABS: PLATELET ESTIMATE ADQ (ADEQUATE); SPHEROCYTES OCC (0-2/OIF)
[2016-08-13 09:28] LABS: HEPATITIS B SURFACE ANTIGEN NON-REACTIVE (NON-REACT)
[2016-08-13 09:52] LABS: HEPATITIS C ANTIBODY NON-REACTIVE (NON-REACT)
[2016-08-13 09:53] LABS: HEPATITIS B CORE AB IGM NON-REACTIVE (NON-REAC); HIV COMBO NON-REACTIVE (NON REAC)
[2016-08-13 09:54] LABS: HEP A ANTIBODY IGM NON-REACTIVE (NON-REACT)
[2016-08-14 05:47] LABS: BASOPHILS 0.1 %; BASOPHILS ABSOLUTE 0.02 10/3/uL (0.0-0.16); EOSINOPHILS 0.1 %; EOSINOPHILS ABSOLUTE 0.02 10/3/uL (0.0-0.53); HEMATOCRIT 33.1 % (40.0-51.0); IMMATURE GRANULOCYTES 0.9 %; IMMATURE GRANULOCYTES ABSOLUTE 0.22 10/3/uL (0.0-0.11); LYMPHOCYTES 6.9 %; LYMPHOCYTES ABSOLUTE 1.62 10/3/uL (0.67-4.30); MEAN CORPUS HGB CONC 33.2 g/dL (32.0-36.0); MEAN CORPUSCULAR HEMOGLOB 22.3 pg (26.0-34.0); MEAN PLATELET VOLUME 10.3 fL (9.2-13.0); MONOCYTES 9.1 %; MONOCYTES ABSOLUTE 2.13 10/3/uL (0.21-1.20); NEUTROPHILS 82.9 %; PLATELET COUNT 301 10/3/uL (150-400); RBC DISTRIBUTION WIDTH 14.5 % (12.0-16.0); RED CELL COUNT 4.94 10/6/uL (4.7-6.1); WHITE BLOOD CELLS 23.4 10/3/uL (4.5-10.5)
[2016-08-14 05:50] LABS: MANUAL DIFF NO %
[2016-08-14 05:53] LABS: ALBUMIN 1.8 G/DL (3.5-5.0); BUN (BLOOD UREA NITROGEN) 12 MG/DL (6-23); CALCIUM, SERUM 8.5 MG/DL (8.5-10.4); CHLORIDE, SERUM 101 MMOL/L (96-112); CO2 (CARBON DIOXIDE) 26 MMOL/L (24-34); GFR AFRICAN AMERICAN 108 ML/MIN (>=60); GFR NON AFRICAN AMERICAN 93 ML/MIN (>=60); GLUCOSE, SERUM 113 MG/DL (60-99); PHOSPHORUS, SERUM 2.9 MG/DL (2.5-4.5); POTASSIUM, SERUM 3.4 MMOL/L (3.5-5.3); SODIUM, SERUM 138 MMOL/L (135-148)
[2016-08-14 06:16] LABS: PLATELET ESTIMATE ADQ (ADEQUATE); TARGET CELLS FEW (3-10/OIF) (0-1/OIF)
[2016-08-14 06:17] LABS: POLYCHROMASIA 1+ (2-5/OIF) (0-1/OIF)
[2016-08-14 13:37] LABS: BASOPHILS 0.1 %; BASOPHILS ABSOLUTE 0.03 10/3/uL (0.0-0.16); EOSINOPHILS 0.1 %; EOSINOPHILS ABSOLUTE 0.02 10/3/uL (0.0-0.53); HEMATOCRIT 34.4 % (40.0-51.0); HEMOGLOBIN 11.3 g/dL (13.6-17.8); IMMATURE GRANULOCYTES 2.1 %; IMMATURE GRANULOCYTES ABSOLUTE 0.44 10/3/uL (0.0-0.11); LYMPHOCYTES 5.9 %; LYMPHOCYTES ABSOLUTE 1.26 10/3/uL (0.67-4.30); MEAN CORPUS HGB CONC 32.8 g/dL (32.0-36.0); MEAN CORPUSCULAR HEMOGLOB 21.8 pg (26.0-34.0); MEAN CORPUSCULAR VOLUME 66.4 fL (80-100); MEAN PLATELET VOLUME 10.1 fL (9.2-13.0); MONOCYTES 9.2 %; MONOCYTES ABSOLUTE 1.96 10/3/uL (0.21-1.20); NEUTROPHILS 82.6 %; NEUTROPHILS ABSOLUTE 17.59 10/3/uL (2.02-8.40); PLATELET COUNT 304 10/3/uL (150-400); RBC DISTRIBUTION WIDTH 14.5 % (12.0-16.0); RED CELL COUNT 5.18 10/6/uL (4.7-6.1); WHITE BLOOD CELLS 21.3 10/3/uL (4.5-10.5)
[2016-08-14 13:40] LABS: MANUAL DIFF NO %
[2016-08-14 13:52] LABS: BUN (BLOOD UREA NITROGEN) 10 MG/DL (6-23); CHLORIDE, SERUM 102 MMOL/L (96-112); CO2 (CARBON DIOXIDE) 26 MMOL/L (24-34); CREATININE 0.94 MG/DL (0.70-1.30); GFR AFRICAN AMERICAN 116 ML/MIN (>=60); GFR NON AFRICAN AMERICAN 100 ML/MIN (>=60); GLUCOSE, SERUM 126 MG/DL (60-99); POTASSIUM, SERUM 3.7 MMOL/L (3.5-5.3); SODIUM, SERUM 139 MMOL/L (135-148)
[2016-08-14 13:57] LABS: PLATELET ESTIMATE ADQ (ADEQUATE)
[2016-08-14 13:59] LABS: GIANT PLATELET OCC; TARGET CELLS FEW (3-10/OIF) (0-1/OIF); TOXIC GRANULATION SLT
[2016-08-15 01:27] LABS: BE (BASE EXCESS) 1.2 MEQ/L (0 +/- 2.5); CARBOXYHEMOGLOBIN 0.7 % (0-3); DEVICE NC; HEMOBLOGIN CONTENT 13.4 G/DL (14-18); INSTRUMENT SERIAL # 11843; METHEMOGLOBIN 0.5 % (0-3); O2 CONTENT 18.2 VOL% (18-24); OPERATOR ID 32193; PCO2 (CO2 TENSION) 37 MMHG (35-45); PO2 (O2 TENSION) 95 MMHG (79-93); SAMPLE Arterial; pH 7.45 (7.37-7.43)
[2016-08-15 03:20] LABS: HEMATOCRIT 35.6 % (40.0-51.0); HEMOGLOBIN 11.8 g/dL (13.6-17.8); MEAN CORPUS HGB CONC 33.1 g/dL (32.0-36.0); MEAN CORPUSCULAR HEMOGLOB 22.4 pg (26.0-34.0); MEAN CORPUSCULAR VOLUME 67.7 fL (80-100); PLATELET COUNT 301 10/3/uL (150-400); RBC DISTRIBUTION WIDTH 14.7 % (12.0-16.0); RED CELL COUNT 5.26 10/6/uL (4.7-6.1)
[2016-08-15 03:32] LABS: WHITE BLOOD CELLS 27.6 10/3/uL (4.5-10.5)
[2016-08-15 03:34] LABS: ALBUMIN 1.6 G/DL (3.5-5.0); BUN (BLOOD UREA NITROGEN) 10 MG/DL (6-23); CHLORIDE, SERUM 101 MMOL/L (96-112); CO2 (CARBON DIOXIDE) 27 MMOL/L (24-34); CREATININE 1.05 MG/DL (0.70-1.30); GFR AFRICAN AMERICAN 102 ML/MIN (>=60); GFR NON AFRICAN AMERICAN 88 ML/MIN (>=60); GLUCOSE, SERUM 131 MG/DL (60-99); SODIUM, SERUM 137 MMOL/L (135-148)
[2016-08-15 03:35] LABS: MANUAL DIFF YES %
[2016-08-15 03:41] LABS: BAND NEUTROPHILS 16 %; IMMATURE GRANS ABSOLUTE (CALC) 0.28 10/3/uL (0.0-0.11); LYMPHOCYTES 4 %; METAMYELOCYTES 1 %; MONOCYTES 5 %; MONOCYTES ABSOLUTE (CALC) 1.38 10/3/uL (0.21-1.20); NEUTROPHILS ABSOLUTE (CALC) 24.84 10/3/uL (2.02-8.40); PLATELET ESTIMATE ADQ (ADEQUATE); SEGMENTED NEUTROPHIL (0) 74 %; TARGET CELLS FEW (3-10/OIF) (0-1/OIF); TOTAL NUCLEATED CELLS 100
[2016-08-16 05:17] LABS: HEMATOCRIT 32.9 % (40.0-51.0); MANUAL DIFF YES %; MEAN CORPUS HGB CONC 33.4 g/dL (32.0-36.0); MEAN CORPUSCULAR HEMOGLOB 22.4 pg (26.0-34.0); MEAN CORPUSCULAR VOLUME 66.9 fL (80-100); MEAN PLATELET VOLUME 10.5 fL (9.2-13.0); PLATELET COUNT 326 10/3/uL (150-400); RBC DISTRIBUTION WIDTH 14.6 % (12.0-16.0); RED CELL COUNT 4.92 10/6/uL (4.7-6.1); WHITE BLOOD CELLS 38.7 10/3/uL (4.5-10.5)
[2016-08-16 05:55] LABS: BAND NEUTROPHILS 9 %; LYMPHOCYTES 8 %; MONOCYTES 1 %; MONOCYTES ABSOLUTE (CALC) 0.39 10/3/uL (0.21-1.20); NEUTROPHILS ABSOLUTE (CALC) 35.22 10/3/uL (2.02-8.40); PLATELET ESTIMATE ADQ (ADEQUATE); SEGMENTED NEUTROPHIL (0) 82 %; TOTAL NUCLEATED CELLS 100
[2016-08-16 05:57] LABS: HYPOCHROMIA 1+ (3-10/OIF) (0-2/OIF)
[2016-08-17 04:12] LABS: HEMOGLOBIN 10.5 g/dL (13.6-17.8); MANUAL DIFF YES %; MEAN CORPUS HGB CONC 33.9 g/dL (32.0-36.0); MEAN CORPUSCULAR HEMOGLOB 22.5 pg (26.0-34.0); MEAN CORPUSCULAR VOLUME 66.4 fL (80-100); PLATELET COUNT 321 10/3/uL (150-400); RBC DISTRIBUTION WIDTH 14.7 % (12.0-16.0); RED CELL COUNT 4.67 10/6/uL (4.7-6.1); WHITE BLOOD CELLS 40.3 10/3/uL (4.5-10.5)
[2016-08-17 04:18] LABS: BUN (BLOOD UREA NITROGEN) 7 MG/DL (6-23); CALCIUM, SERUM 7.9 MG/DL (8.5-10.4); CHLORIDE, SERUM 100 MMOL/L (96-112); CO2 (CARBON DIOXIDE) 28 MMOL/L (24-34); CREATININE 0.93 MG/DL (0.70-1.30); GFR AFRICAN AMERICAN 118 ML/MIN (>=60); GFR NON AFRICAN AMERICAN 102 ML/MIN (>=60); GLUCOSE, SERUM 116 MG/DL (60-99); POTASSIUM, SERUM 3.7 MMOL/L (3.5-5.3); SODIUM, SERUM 136 MMOL/L (135-148)
[2016-08-17 04:39] LABS: BAND NEUTROPHILS 4 %; LYMPHOCYTES 6 %; LYMPHOCYTES ABSOLUTE (CALC) 2.42 10/3/uL (0.67-4.30); MONOCYTES 5 %; MONOCYTES ABSOLUTE (CALC) 2.02 10/3/uL (0.21-1.20); NEUTROPHILS ABSOLUTE (CALC) 35.87 10/3/uL (2.02-8.40); PLATELET ESTIMATE ADQ (ADEQUATE); SEGMENTED NEUTROPHIL (0) 85 %; TOTAL NUCLEATED CELLS 100
[2016-08-17 04:40] LABS: TEARDROP SHAPED RBCS FEW (3-10/OIF)
[2016-08-17 22:40] LABS: ASCORBIC ACID (UR NOT ORDER) 20 (NEG); BILIRUBIN, URINE NEGATIVE (NEG); KETONE, URINE NEGATIVE (NEG); LEUKOCYTE ESTERASE(NOT OR NEG (NEG); WBC (NOT ORDERED) (RFLEX) 4 (0-5)
[2016-08-18 06:02] LABS: HEMOGLOBIN 9.8 g/dL (13.6-17.8); MEAN CORPUS HGB CONC 32.7 g/dL (32.0-36.0); MEAN CORPUSCULAR HEMOGLOB 21.5 pg (26.0-34.0); MEAN CORPUSCULAR VOLUME 65.8 fL (80-100); PLATELET COUNT 300 10/3/uL (150-400); RBC DISTRIBUTION WIDTH 14.6 % (12.0-16.0); RED CELL COUNT 4.56 10/6/uL (4.7-6.1)
[2016-08-18 06:04] LABS: MANUAL DIFF YES %; WHITE BLOOD CELLS 28.1 10/3/uL (4.5-10.5)
[2016-08-18 06:17] LABS: BAND NEUTROPHILS 1 %; IMMATURE GRANS ABSOLUTE (CALC) 0.28 10/3/uL (0.0-0.11); LYMPHOCYTES 4 %; LYMPHOCYTES ABSOLUTE (CALC) 1.12 10/3/uL (0.67-4.30); METAMYELOCYTES 1 %; MICROCYTES 4+ (>50/OIF) (0-5/OIF); MONOCYTES 8 %; MONOCYTES ABSOLUTE (CALC) 2.25 10/3/uL (0.21-1.20); NEUTROPHILS ABSOLUTE (CALC) 24.45 10/3/uL (2.02-8.40); PLATELET ESTIMATE ADQ (ADEQUATE); SEGMENTED NEUTROPHIL (0) 86 %; TARGET CELLS FEW (3-10/OIF) (0-1/OIF); TOTAL NUCLEATED CELLS 100
[2016-08-18 07:47] LABS: BUN (BLOOD UREA NITROGEN) 6 MG/DL (6-23); CALCIUM, SERUM 8.1 MG/DL (8.5-10.4); CHLORIDE, SERUM 101 MMOL/L (96-112); CO2 (CARBON DIOXIDE) 30 MMOL/L (24-34); CREATININE 1.01 MG/DL (0.70-1.30); GFR AFRICAN AMERICAN 107 ML/MIN (>=60); GFR NON AFRICAN AMERICAN 92 ML/MIN (>=60); GLUCOSE, SERUM 107 MG/DL (60-99); POTASSIUM, SERUM 3.5 MMOL/L (3.5-5.3); SODIUM, SERUM 138 MMOL/L (135-148)
[2016-08-18 20:51] LABS: HEMATOCRIT 30.2 % (40.0-51.0); HEMOGLOBIN 9.8 g/dL (13.6-17.8); MEAN CORPUS HGB CONC 32.5 g/dL (32.0-36.0); MEAN CORPUSCULAR HEMOGLOB 21.5 pg (26.0-34.0); MEAN CORPUSCULAR VOLUME 66.2 fL (80-100); MEAN PLATELET VOLUME 9.3 fL (9.2-13.0); PLATELET COUNT 370 10/3/uL (150-400); RBC DISTRIBUTION WIDTH 14.4 % (12.0-16.0); RED CELL COUNT 4.56 10/6/uL (4.7-6.1)
[2016-08-18 20:53] LABS: MANUAL DIFF YES %; WHITE BLOOD CELLS 27.2 10/3/uL (4.5-10.5)
[2016-08-18 21:01] LABS: BUN (BLOOD UREA NITROGEN) 7 MG/DL (6-23); CALCIUM, SERUM 7.9 MG/DL (8.5-10.4); CHLORIDE, SERUM 101 MMOL/L (96-112); CO2 (CARBON DIOXIDE) 32 MMOL/L (24-34); CREATININE 0.91 MG/DL (0.70-1.30); GFR AFRICAN AMERICAN 121 ML/MIN (>=60); GFR NON AFRICAN AMERICAN 104 ML/MIN (>=60); GLUCOSE, SERUM 106 MG/DL (60-99); POTASSIUM, SERUM 3.8 MMOL/L (3.5-5.3); SODIUM, SERUM 141 MMOL/L (135-148)
[2016-08-18 21:39] LABS: BAND NEUTROPHILS 3 %; LYMPHOCYTES 3 %; LYMPHOCYTES ABSOLUTE (CALC) 0.82 10/3/uL (0.67-4.30); MONOCYTES 4 %; MONOCYTES ABSOLUTE (CALC) 1.09 10/3/uL (0.21-1.20); SEGMENTED NEUTROPHIL (0) 90 %; TOTAL NUCLEATED CELLS 100
[2016-08-18 21:40] LABS: PLATELET ESTIMATE ADQ (ADEQUATE)
[2016-08-19 05:22] LABS: BUN (BLOOD UREA NITROGEN) 6 MG/DL (6-23); CALCIUM, SERUM 7.6 MG/DL (8.5-10.4); CHLORIDE, SERUM 100 MMOL/L (96-112); CO2 (CARBON DIOXIDE) 31 MMOL/L (24-34); CREATININE 0.92 MG/DL (0.70-1.30); GFR AFRICAN AMERICAN 119 ML/MIN (>=60); GFR NON AFRICAN AMERICAN 103 ML/MIN (>=60); GLUCOSE, SERUM 119 MG/DL (60-99); POTASSIUM, SERUM 3.7 MMOL/L (3.5-5.3); SODIUM, SERUM 140 MMOL/L (135-148)
[2016-08-19 05:32] LABS: HEMATOCRIT 29.6 % (40.0-51.0); HEMOGLOBIN 9.6 g/dL (13.6-17.8); MEAN CORPUS HGB CONC 32.4 g/dL (32.0-36.0); MEAN CORPUSCULAR VOLUME 67.9 fL (80-100); MEAN PLATELET VOLUME 9.6 fL (9.2-13.0); PLATELET COUNT 343 10/3/uL (150-400); RBC DISTRIBUTION WIDTH 14.4 % (12.0-16.0); RED CELL COUNT 4.36 10/6/uL (4.7-6.1)
[2016-08-19 05:33] LABS: MANUAL DIFF YES %
[2016-08-19 06:39] LABS: BAND NEUTROPHILS 4 %; EOSINOPHILS 2 %; LYMPHOCYTES 10 %; MONOCYTES 2 %; SEGMENTED NEUTROPHIL (0) 82 %; TARGET CELLS OCC (1-2/OIF) (0-1/OIF); TOTAL NUCLEATED CELLS 100
[2016-08-19 06:40] LABS: HYPOCHROMIA 1+ (3-10/OIF) (0-2/OIF); PLATELET ESTIMATE ADQ (ADEQUATE)
[2016-08-20 06:34] LABS: BUN (BLOOD UREA NITROGEN) 4 MG/DL (6-23); CALCIUM, SERUM 7.8 MG/DL (8.5-10.4); CHLORIDE, SERUM 99 MMOL/L (96-112); CO2 (CARBON DIOXIDE) 30 MMOL/L (24-34); CREATININE 0.89 MG/DL (0.70-1.30); GFR AFRICAN AMERICAN 123 ML/MIN (>=60); GFR NON AFRICAN AMERICAN 106 ML/MIN (>=60); GLUCOSE, SERUM 115 MG/DL (60-99); POTASSIUM, SERUM 3.4 MMOL/L (3.5-5.3); SODIUM, SERUM 138 MMOL/L (135-148)
[2016-08-20 06:35] LABS: HEMATOCRIT 27.7 % (40.0-51.0); HEMOGLOBIN 9.1 g/dL (13.6-17.8); MANUAL DIFF YES %; MEAN CORPUS HGB CONC 32.9 g/dL (32.0-36.0); MEAN CORPUSCULAR HEMOGLOB 22.1 pg (26.0-34.0); MEAN CORPUSCULAR VOLUME 67.2 fL (80-100); MEAN PLATELET VOLUME 9.5 fL (9.2-13.0); PLATELET COUNT 394 10/3/uL (150-400); RBC DISTRIBUTION WIDTH 14.5 % (12.0-16.0); RED CELL COUNT 4.12 10/6/uL (4.7-6.1); WHITE BLOOD CELLS 23.4 10/3/uL (4.5-10.5)
[2016-08-20 06:54] LABS: BAND NEUTROPHILS 1 %; EOSINOPHILS 1 %; EOSINOPHILS ABSOLUTE (CALC) 0.23 10/3/uL (0.0-0.53); LYMPHOCYTES 12 %; LYMPHOCYTES ABSOLUTE (CALC) 2.81 10/3/uL (0.67-4.30); MONOCYTES 6 %; NEUTROPHILS ABSOLUTE (CALC) 18.95 10/3/uL (2.02-8.40); SEGMENTED NEUTROPHIL (0) 80 %; TOTAL NUCLEATED CELLS 100
[2016-08-20 06:55] LABS: HYPOCHROMIA 1+ (3-10/OIF) (0-2/OIF); PLATELET ESTIMATE ADQ (ADEQUATE)
[2016-08-21 07:10] LABS: BUN (BLOOD UREA NITROGEN) 4 MG/DL (6-23); CALCIUM, SERUM 7.7 MG/DL (8.5-10.4); CHLORIDE, SERUM 102 MMOL/L (96-112); CO2 (CARBON DIOXIDE) 29 MMOL/L (24-34); CREATININE 0.86 MG/DL (0.70-1.30); GFR AFRICAN AMERICAN 125 ML/MIN (>=60); GFR NON AFRICAN AMERICAN 108 ML/MIN (>=60); GLUCOSE, SERUM 96 MG/DL (60-99); POTASSIUM, SERUM 3.8 MMOL/L (3.5-5.3); SODIUM, SERUM 140 MMOL/L (135-148)
[2016-08-21 07:21] LABS: BASOPHILS 0.1 %; BASOPHILS ABSOLUTE 0.02 10/3/uL (0.0-0.16); EOSINOPHILS 1.9 %; EOSINOPHILS ABSOLUTE 0.38 10/3/uL (0.0-0.53); HEMATOCRIT 26.4 % (40.0-51.0); HEMOGLOBIN 8.7 g/dL (13.6-17.8); IMMATURE GRANULOCYTES 1.8 %; IMMATURE GRANULOCYTES ABSOLUTE 0.36 10/3/uL (0.0-0.11); LYMPHOCYTES ABSOLUTE 2.54 10/3/uL (0.67-4.30); MEAN CORPUSCULAR HEMOGLOB 22.2 pg (26.0-34.0); MEAN CORPUSCULAR VOLUME 67.3 fL (80-100); MEAN PLATELET VOLUME 9.3 fL (9.2-13.0); MONOCYTES 7.9 %; MONOCYTES ABSOLUTE 1.55 10/3/uL (0.21-1.20); NEUTROPHILS 75.3 %; NEUTROPHILS ABSOLUTE 14.71 10/3/uL (2.02-8.40); PLATELET COUNT 464 10/3/uL (150-400); RBC DISTRIBUTION WIDTH 14.5 % (12.0-16.0); RED CELL COUNT 3.92 10/6/uL (4.7-6.1); WHITE BLOOD CELLS 19.6 10/3/uL (4.5-10.5)
[2016-08-21 07:24] LABS: MANUAL DIFF NO %
[2016-08-21 08:28] LABS: PLATELET ESTIMATE SLT INC (ADEQUATE)
[2016-08-21 08:29] LABS: TARGET CELLS FEW (3-10/OIF) (0-1/OIF)
[2016-08-21 08:30] LABS: ANISOCYTOSIS 1+ (5-10/OIF) (0-5/OIF); POLYCHROMASIA 1+ (2-5/OIF) (0-1/OIF); TEARDROP SHAPED RBCS OCC (0-2/OIF)
[2016-08-21 12:07] LABS: FERRITIN 584 NG/ML (26-388); FOLATE 3.2 NG/ML (>5.2); IRON BINDING CAPACITY 129 MCG/DL (250-450)
[2016-08-22 06:58] LABS: BASOPHILS 0.2 %; BASOPHILS ABSOLUTE 0.04 10/3/uL (0.0-0.16); HEMATOCRIT 26.6 % (40.0-51.0); HEMOGLOBIN 8.6 g/dL (13.6-17.8); IMMATURE GRANULOCYTES 1.6 %; IMMATURE GRANULOCYTES ABSOLUTE 0.32 10/3/uL (0.0-0.11); LYMPHOCYTES 13.8 %; LYMPHOCYTES ABSOLUTE 2.73 10/3/uL (0.67-4.30); MEAN CORPUS HGB CONC 32.3 g/dL (32.0-36.0); MEAN CORPUSCULAR HEMOGLOB 21.9 pg (26.0-34.0); MEAN CORPUSCULAR VOLUME 67.7 fL (80-100); MEAN PLATELET VOLUME 9.2 fL (9.2-13.0); MONOCYTES 7.3 %; MONOCYTES ABSOLUTE 1.44 10/3/uL (0.21-1.20); NEUTROPHILS 76.1 %; NEUTROPHILS ABSOLUTE 14.99 10/3/uL (2.02-8.40); PLATELET COUNT 537 10/3/uL (150-400); RBC DISTRIBUTION WIDTH 14.5 % (12.0-16.0); RED CELL COUNT 3.93 10/6/uL (4.7-6.1); WHITE BLOOD CELLS 19.7 10/3/uL (4.5-10.5)
[2016-08-22 06:59] LABS: MANUAL DIFF NO %
[2016-08-22 07:03] LABS: BUN (BLOOD UREA NITROGEN) 6 MG/DL (6-23); CALCIUM, SERUM 8.1 MG/DL (8.5-10.4); CHLORIDE, SERUM 104 MMOL/L (96-112); CO2 (CARBON DIOXIDE) 28 MMOL/L (24-34); CREATININE 0.84 MG/DL (0.70-1.30); GFR AFRICAN AMERICAN 126 ML/MIN (>=60); GFR NON AFRICAN AMERICAN 109 ML/MIN (>=60); GLUCOSE, SERUM 92 MG/DL (60-99); POTASSIUM, SERUM 4.3 MMOL/L (3.5-5.3); SODIUM, SERUM 140 MMOL/L (135-148)
[2016-08-22 07:46] LABS: PLATELET ESTIMATE SLT INC (ADEQUATE)
[2016-08-23 04:45] LABS: BASOPHILS 0.2 %; BASOPHILS ABSOLUTE 0.04 10/3/uL (0.0-0.16); EOSINOPHILS 1.3 %; EOSINOPHILS ABSOLUTE 0.22 10/3/uL (0.0-0.53); HEMATOCRIT 26.6 % (40.0-51.0); HEMOGLOBIN 8.7 g/dL (13.6-17.8); IMMATURE GRANULOCYTES 1.7 %; IMMATURE GRANULOCYTES ABSOLUTE 0.29 10/3/uL (0.0-0.11); LYMPHOCYTES 18.7 %; LYMPHOCYTES ABSOLUTE 3.17 10/3/uL (0.67-4.30); MEAN CORPUS HGB CONC 32.7 g/dL (32.0-36.0); MEAN CORPUSCULAR HEMOGLOB 22.2 pg (26.0-34.0); MEAN CORPUSCULAR VOLUME 67.9 fL (80-100); MEAN PLATELET VOLUME 8.8 fL (9.2-13.0); MONOCYTES 6.7 %; MONOCYTES ABSOLUTE 1.13 10/3/uL (0.21-1.20); NEUTROPHILS 71.4 %; NEUTROPHILS ABSOLUTE 12.12 10/3/uL (2.02-8.40); PLATELET COUNT 581 10/3/uL (150-400); RBC DISTRIBUTION WIDTH 14.7 % (12.0-16.0); RED CELL COUNT 3.92 10/6/uL (4.7-6.1)
[2016-08-23 04:49] LABS: MANUAL DIFF NO %
[2016-08-23 05:01] LABS: BUN (BLOOD UREA NITROGEN) 7 MG/DL (6-23); CALCIUM, SERUM 8.1 MG/DL (8.5-10.4); CHLORIDE, SERUM 103 MMOL/L (96-112); CO2 (CARBON DIOXIDE) 28 MMOL/L (24-34); GFR AFRICAN AMERICAN 123 ML/MIN (>=60); GFR NON AFRICAN AMERICAN 106 ML/MIN (>=60); GLUCOSE, SERUM 94 MG/DL (60-99); POTASSIUM, SERUM 4.3 MMOL/L (3.5-5.3); SODIUM, SERUM 139 MMOL/L (135-148)
[2016-08-23 06:00] LABS: ANISOCYTOSIS 1+ (5-10/OIF) (0-5/OIF); PLATELET ESTIMATE INC (ADEQUATE); RBC MORPHOLOGY ABN (NORMAL)
[2016-08-24 06:51] LABS: BASOPHILS 0.1 %; BASOPHILS ABSOLUTE 0.02 10/3/uL (0.0-0.16); EOSINOPHILS 1.4 %; EOSINOPHILS ABSOLUTE 0.23 10/3/uL (0.0-0.53); HEMATOCRIT 26.7 % (40.0-51.0); HEMOGLOBIN 8.6 g/dL (13.6-17.8); IMMATURE GRANULOCYTES 1.5 %; IMMATURE GRANULOCYTES ABSOLUTE 0.26 10/3/uL (0.0-0.11); LYMPHOCYTES 16.2 %; LYMPHOCYTES ABSOLUTE 2.74 10/3/uL (0.67-4.30); MEAN CORPUS HGB CONC 32.2 g/dL (32.0-36.0); MEAN CORPUSCULAR HEMOGLOB 21.9 pg (26.0-34.0); MEAN CORPUSCULAR VOLUME 68.1 fL (80-100); MEAN PLATELET VOLUME 8.7 fL (9.2-13.0); MONOCYTES ABSOLUTE 1.18 10/3/uL (0.21-1.20); NEUTROPHILS 73.8 %; NEUTROPHILS ABSOLUTE 12.45 10/3/uL (2.02-8.40); PLATELET COUNT 615 10/3/uL (150-400); RED CELL COUNT 3.92 10/6/uL (4.7-6.1); WHITE BLOOD CELLS 16.9 10/3/uL (4.5-10.5)
[2016-08-24 06:54] LABS: MANUAL DIFF NO %
[2016-08-24 07:04] LABS: BUN (BLOOD UREA NITROGEN) 8 MG/DL (6-23); CALCIUM, SERUM 8.1 MG/DL (8.5-10.4); CHLORIDE, SERUM 103 MMOL/L (96-112); CO2 (CARBON DIOXIDE) 28 MMOL/L (24-34); CREATININE 0.94 MG/DL (0.70-1.30); GFR AFRICAN AMERICAN 116 ML/MIN (>=60); GFR NON AFRICAN AMERICAN 100 ML/MIN (>=60); GLUCOSE, SERUM 99 MG/DL (60-99); POTASSIUM, SERUM 4.3 MMOL/L (3.5-5.3); SODIUM, SERUM 138 MMOL/L (135-148)
[2016-08-24 07:24] LABS: PLATELET ESTIMATE INC (ADEQUATE); POLYCHROMASIA 1+ (2-5/OIF) (0-1/OIF); VACUOLATED NEUTROPHILES 1+
[2016-08-24 07:26] LABS: POIKILOCYTOSIS 1+ (5-10/OIF) (0-5/OIF); TARGET CELLS FEW (3-10/OIF) (0-1/OIF); TOXIC GRANULATION 1+
[2016-08-24] MEDS ORDERED: VITC500 PO (09:06)
[2016-08-24] MEDS ORDERED: FOLIC PO (09:09)
[2016-08-24] MEDS ORDERED: LOP25 PO (09:10)
[2016-08-24] MEDS ORDERED: PCET PO (09:11)
[2016-08-24] MEDS ORDERED: PROVHFA INH (09:11)
== END 2016-08-24 13:56 | disposition home or self-care (01) | DRG 853 ==
LOC: 6NO 20:07 → CVICU 08-14 14:04 → 5NO 08-15 10:55
PROVIDERS: Internal Medicine; Nurse Practitioner Acute Care; Nurse Practitioner Family; Student in an Organized Health Care Education/Training Program; Thoracic Surgery (Cardiothoracic Vascular Surgery)
PROC: 0B9 Respiratory System, Drainage (ICD-10-PCS; 2016-08-14)
PROC: 0BDN4ZZ Extraction of Right Pleura, Percutaneous Endoscopic Approach (ICD-10-PCS; principal; 2016-08-14 10:45)
PROC: 0BDN4ZZ Extraction of Right Pleura, Percutaneous Endoscopic Approach (ICD-10-PCS; 2016-08-18)
PROC: 0BJ08ZZ Inspection of Tracheobronchial Tree, Via Natural or Artificial Opening Endoscopic (ICD-10-PCS; 2016-08-18)
DX: A41.9 Sepsis, unspecified organism (principal); J86.9 Pyothorax without fistula; J85.0 Gangrene and necrosis of lung; J90 Pleural effusion, not elsewhere classified; Z68.42 Body mass index [BMI] 45.0-49.9, adult; I10 Essential (primary) hypertension; F17.210 Nicotine dependence, cigarettes, uncomplicated; H66.93 Otitis media, unspecified, bilateral; E66.01 Morbid (severe) obesity due to excess calories; E83.42 Hypomagnesemia; B95.5 Unspecified streptococcus as the cause of diseases classified elsewhere
CPT/HCPCS: 36415; 36569; 36600; 71010; 71020; 71250; 74220; 80048; 80053; 80069; 80074; 81001; 82565; 82607; 82728; 82746; 82805; 82962; 83550; 83735; 84145; 85025; 85610; 86850; 86900; 86901; 86920; 87015; 87040; 87070; 87075; 87077; 87101; 87102; 87116; 87186; 87205; 87389; 87449; 88112; 88173; 88305; 93005; 94640; 94660; 94668; A9270-GY; C1751; C8929; J0295; J0690; J1956; J2020; J2250; J2270; J2370; J2405; J2543; J2710; J2795; J3010; J3370; P9045; Q9957

== ENCOUNTER 2016-10-16 17:30 | Emergency (ER) | payer SELFPAY ==
[~2016-10-16 17:30] MED LIST: FOLIC PO; LOP25 PO; PCET PO; PROVHFA INH; VITC500 PO; ZESTRIL30 MG PO
== END 2016-10-16 18:02 | disposition home or self-care (01) ==
LOC: ER 17:30
DX: H92.01 Otalgia, right ear (principal); I10 Essential (primary) hypertension; Z79.899 Other long term (current) drug therapy
CPT/HCPCS: 99282